=== PATIENT | female | born 1980 | race Hispanic/Latino ===

== ENCOUNTER 2017-09-08 09:27 | Emergency (ER) | payer SELFPAY ==
[~2017-09-08 09:27] MED LIST: Iopamidol 370 76% 125 ML VIAL FS ONE
[2017-09-08 09:57] LABS: #Basophils 0.1 thou/uL (0.0-0.2); #Eosinphils 0.1 thou/uL (0.0-0.7); #Lymphocytes 1.6 thou/uL (1.20-3.40); #Monocytes 0.5 thou/uL (0.11-0.59); #Neutrophils 2.6 thou/uL (1.40-6.50); %Basophils 1.1 % (0.0-1.0); %Eosinophils 2.6 % (0.0-10.0); %Lymphocytes 33.2 % (21.0-51.0); %Monocytes 9.2 % (0.0-10.0); Hemoglobin 13.8 g/dL (12.0-16.0); Mean Corpuscular HGB CONC 34.5 g/dL (32.0-36.0); Mean Corpuscular Hemoglobin 30.2 pg (27.0-31.0); Mean Corpuscular Volume 87.6 fl (81.0-99.0); Mean Platelet Volume 7.3 fL (7.4-10.4); Platelet Count 268 thou/uL (130-400); RBC Distribution Width 11.8 % (11.5-14.5); Red Blood Cell (RBC) Count 4.58 mill/uL (4.20-5.40); White Blood Cell (WBC) Count 4.8 thou/uL (4.8-10.8)
[2017-09-08 10:09] LABS: ALT (SGPT) 73 U/L (8-55); AST (SGOT) 35 U/L (5-34); Albumin 4.2 g/dL (3.5-5.0); Alkaline Phosphatase 61 U/L (40-150); Anion Gap 14 mmol/L (10-20); BUN (Urea Nitrogen) 7 mg/dL (7.0-18.7); Bilirubin, Total 0.3 mg/dL (0.2-1.2); Calc. Creatinine Clearance 0 mL/min (70-130); Calcium 9.4 mg/dL (7.8-10.44); Carbon Dioxide 23 mmol/L (22-29); Chloride 106 mmol/L (98-107); Estimated GFR-MDRD 83; Globulin 3.5 g/dL (2.4-3.5); Glucose 100 mg/dL (70-105); Potassium 4.1 mmol/L (3.5-5.1); Protein, Total 7.7 g/dL (6.0-8.3); Sodium 139 mmol/L (136-145)
[2017-09-08 10:18] LABS: BHCG - Serum Negative (NEGATIVE); Pregs Control Background? CLEAR/WHITE (CLR/WHITE); Pregs Control Bar Appear? YES (CONTROL BAR)
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
--- NOTE | 2017-09-08 10:38 | CT ---
CT OF CERVICAL SPINE PERFORMED WITHOUT CONTRAST ENHANCEMENT HISTORY: Neck pain status post fall. FINDINGS: The vertebral bodies are normal in height. There is some posterior osteophytic change at the C6-7 le chasidy. Some minimal offset of the facets, but there are no signs of ay perched facet at this level, pr obably on the basis of the arthritic change. There is no canal or foraminal stenosis and there is no CT evidence of a fracture. IMPRESSION: Arthritic changes of the C6-[address] evidence of fracture. POS: [facility]
[2017-09-08] MEDS ORDERED: Ketorolac Tromethamine 30 MG/ML VIAL ONE (10:46)
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
--- NOTE | 2017-09-08 11:54 | RAD ---
RIGHT KNEE 2 VIEWS: HISTORY: Knee injury. FINDINGS: There is a suggestion of some medial compartment narrowing. There are no signs of fracture, dislocat ion, or joint effusion. IMPRESSION: No evidence of fracture. POS: [facility]
== END 2017-09-08 11:50 | disposition home or self-care (01) ==
LOC: MADERS 09:27
DX: S86.811A Strain of other muscle(s) and tendon(s) at lower leg level, right leg, initial encounter (principal); V89.2XXA Person injured in unspecified motor-vehicle accident, traffic, initial encounter
CPT/HCPCS: 70450; 71260; 72125; 74177; 80053; 84703; 85025; 96374; J1885

== ENCOUNTER 2018-03-14 09:03 | Outpatient (CLI) | payer OTHER ==
--- NOTE | 2018-03-14 09:39 | RAD ---
CERVICAL SPINE 6 VIEWS: Date: 03/14/18 HISTORY: Neck pain. Arm weakness. FINDINGS: Vertebral body heights are maintained. There is gentle reversal of the normal lordotic curvature. No acute fracture, dislocation, or aggressive osseous erosions. No significant osseous encroachment of t he neural foramina on the oblique views. IMPRESSION: Normal radiographic appearance of the cervical spine. POS: [facility]
== END 2018-03-14 09:04 | disposition home or self-care (01) ==
LOC: MADRAD 09:03
PROVIDERS: ATTEND Family Medicine
DX: R29.898 Other symptoms and signs involving the musculoskeletal system (principal)
CPT/HCPCS: 72050

== ENCOUNTER 2019-04-16 08:55 | Outpatient (CLI) | payer OTHER ==
[2019-04-16 09:38] LABS: Cardiac Risk 3.6 (Less than 4.5)
[2019-04-16 17:25] LABS: Creatinine, Urine 209.08 mg/dL (47-110); Microalbumin Urine Less than 1.0 mg/dL (0.5-50.0)
[2019-04-16 17:57] LABS: Hemoglobin A1c 4.9 % (4.0-6.0)
== END 2019-04-16 08:56 | disposition home or self-care (01) ==
LOC: MADLAB 08:55
PROVIDERS: ATTEND Internal Medicine Endocrinology, Diabetes & Metabolism
DX: E11.65 Type 2 diabetes mellitus with hyperglycemia (principal)
CPT/HCPCS: 36415; 80061; 82043; 83036

== ENCOUNTER 2019-05-30 19:47 | Emergency (ER) | payer OTHER ==
[2019-05-30] MEDS ORDERED: Ketorolac Tromethamine 30 MG/ML VIAL ONE (20:47)
[2019-05-30] MEDS ORDERED: Ondansetron ODT 4 MG TAB ONE (20:47)
[2019-05-30] MEDS ORDERED: traMADol HCl 50 MG TAB ONE (20:47)
== END 2019-05-30 21:07 | disposition home or self-care (01) ==
LOC: MADERS 19:47
DX: K04.7 Periapical abscess without sinus (principal); I10 Essential (primary) hypertension; K02.9 Dental caries, unspecified; K03.81 Cracked tooth
CPT/HCPCS: 96372; 99283; J1885; Q0162

== ENCOUNTER 2019-09-18 12:29 | Outpatient (CLI) | payer OTHER ==
--- NOTE | 2019-09-18 13:34 | ULT ---
EXAM: Ultrasound of the right axilla DATE: 09/18/2019 INDICATION: Pain and palpable abnormality in the right axilla COMPARISON: None. FINDING: No suspicious sonographic abnormality is seen within the region of palpable interest of the right axilla. IMPRESSION:No suspicious sonographic abnormalities seen in the region of palpable interest of the rig ht axilla
== END 2019-09-18 12:30 | disposition home or self-care (01) ==
LOC: MADULT 12:29
PROVIDERS: ATTEND Family Medicine
DX: M79.621 Pain in right upper arm (principal)
CPT/HCPCS: 76999

== ENCOUNTER 2021-08-08 14:23 | Emergency (ER) | payer OTHER ==
[~2021-08-08 14:23] MED LIST changes: +Iopamidol 370 76% 100 ML VIAL ONE; -Iopamidol 370 76% 125 ML VIAL FS ONE
[2021-08-08 17:26] LABS: #Basophils 0.1 thou/uL (0.0-0.2); #Eosinphils 0.2 thou/uL (0.0-0.7); #Lymphocytes 2.1 thou/uL (1.20-3.40); #Monocytes 0.6 thou/uL (0.11-0.59); %Basophils 1.4 % (0.0-1.0); %Eosinophils 2.9 % (0.0-10.0); %Lymphocytes 29.8 % (21.0-51.0); %Neutrophils 57.9 % (42.0-75.0); Hemoglobin 14.4 g/dL (12.0-16.0); Mean Corpuscular HGB CONC 32.9 g/dL (32.0-36.0); Mean Corpuscular Hemoglobin 29.8 pg (27.0-31.0); Mean Corpuscular Volume 90.6 fL (78.0-98.0); Mean Platelet Volume 7.1 fL (7.4-10.4); Platelet Count 342 thou/uL (130-400); RBC Distribution Width 11.7 % (11.5-14.5); Red Blood Cell (RBC) Count 4.83 mill/uL (4.20-5.40); White Blood Cell (WBC) Count 6.9 thou/uL (4.8-10.8)
[2021-08-08 17:39] LABS: BHCG - Serum Negative (NEGATIVE); Pregs Control Background? CLEAR/WHITE (CLR/WHITE); Pregs Control Bar Appear? YES (CONTROL BAR)
[2021-08-08 17:43] LABS: ALT (SGPT) 37 U/L (8-55); AST (SGOT) 27 U/L (5-34); Albumin 4.7 g/dL (3.5-5.0); Alkaline Phosphatase 80 U/L (40-110); Anion Gap 13 mmol/L (10-20); BUN (Urea Nitrogen) 8 mg/dL (7.0-18.7); Bilirubin, Total 0.4 mg/dL (0.2-1.2); Calc. Creatinine Clearance 0 mL/min (70-130); Carbon Dioxide 23 mmol/L (22-29); Chloride 107 mmol/L (98-107); Globulin 3.7 g/dL (2.4-3.5); Glucose 84 mg/dL (70-105); Lipase 30 U/L (8-78); Magnesium 2.2 mg/dL (1.6-2.6); Potassium 3.8 mmol/L (3.5-5.1); Protein, Total 8.4 g/dL (6.0-8.3); Sodium 139 mmol/L (136-145)
[2021-08-08] MEDS ORDERED: Morphine 4 MG/ML VIAL ONE (19:06)
[2021-08-08] MEDS ORDERED: Ondansetron PF 4 MG/2 ML Vial ONE (19:06)
[2021-08-08 19:17] LABS: Bilirubin Negative (Negative); Blood, Urine Large (Negative); Glucose, Urine (Dipstick) Negative (Negative); Ketone, Urine Negative (Negative); Leukocyte Negative (Negative); Nitrite Negative (Negative); Protein, Urine (Dipstick) Negative (Neg-Trace); Urobilinogen 0.2 mg/dL (Less than 2)
[2021-08-08 19:19] LABS: Clarity Hazy (Clear)
[2021-08-08 19:23] LABS: Bacteria/HPF 1+ HPF (None Seen); Squamous Epithelial 0-3 HPF (0-3); WBC/HPF 0-3 HPF (0-3)
== END 2021-08-08 19:41 | disposition home or self-care (01) ==
LOC: MADERS 14:23
DX: R10.12 Left upper quadrant pain (principal); R31.9 Hematuria, unspecified; Z79.899 Other long term (current) drug therapy
CPT/HCPCS: 36415; 74177; 80053; 81003; 81015; 83690; 83735; 84703; 85025; 96374; 96375; J2270; J2405; Q9967

== ENCOUNTER 2021-11-08 15:43 | Outpatient (CLI) | payer OTHER | END 2021-11-08 15:44 | disposition home or self-care (01) | LOC: MADRAD 15:43 | PROVIDERS: ATTEND Family Medicine | DX: Z09 Encounter for follow-up examination after completed treatment for conditions other than malignant neoplasm (principal); Z86.16 Personal history of COVID-19 | CPT/HCPCS: 71046 ==

== ENCOUNTER 2021-12-05 10:57 | Outpatient (CLI) | payer OTHER ==
[2021-12-05 11:46] LABS: Bilirubin Negative (Negative); Blood, Urine Negative (Negative); Clarity Clear (Clear); Glucose, Urine (Dipstick) Negative (Negative); Ketone, Urine Negative (Negative); Leukocyte Negative (Negative); Nitrite Negative (Negative); Protein, Urine (Dipstick) Negative (Neg-Trace); Specific Gravity, Urine 1.025 (1.005-1.030); Urobilinogen 0.2 mg/dL (Less than 2)
[2021-12-05 11:56] LABS: Bacteria/HPF Rare-Few HPF (None Seen); RBC/HPF None Seen HPF (0-3); Squamous Epithelial 0-3 HPF (0-3); WBC/HPF None Seen HPF (0-3); Yeast-Budding Rare HPF (None Seen)
== END 2021-12-05 10:58 | disposition home or self-care (01) ==
LOC: MADLAB 10:57
PROVIDERS: ATTEND Family Medicine
DX: R31.29 Other microscopic hematuria (principal)
CPT/HCPCS: 81001; 87086

== ENCOUNTER 2022-03-14 19:30 | Emergency (ER) | payer OTHER ==
[~2022-03-14 19:30] MED LIST changes: +Sodium Chloride 0.9% 1,000 ML BAG ONE
[2022-03-14] MEDS ORDERED: Ketorolac Tromethamine 30 MG/ML VIAL ONE (20:09)
[2022-03-14 20:32] LABS: #Basophils 0.1 thou/uL (0.0-0.2); #Lymphocytes 0.9 thou/uL (1.20-3.40); #Monocytes 0.7 thou/uL (0.11-0.59); #Neutrophils 10.2 thou/uL (1.40-6.50); %Basophils 1.1 % (0.0-1.0); %Eosinophils 0.1 % (0.0-10.0); %Lymphocytes 7.8 % (21.0-51.0); %Monocytes 5.6 % (0.0-10.0); %Neutrophils 85.4 % (42.0-75.0); Hemoglobin 14.4 g/dL (12.0-16.0); Mean Corpuscular HGB CONC 33.6 g/dL (32.0-36.0); Mean Corpuscular Hemoglobin 27.3 pg (27.0-31.0); Mean Corpuscular Volume 81.1 fL (78.0-98.0); Mean Platelet Volume 7.9 fL (7.4-10.4); Platelet Count 264 thou/uL (130-400); RBC Distribution Width 11.5 % (11.5-14.5); White Blood Cell (WBC) Count 11.9 thou/uL (4.8-10.8)
[2022-03-14 20:47] LABS: ALT (SGPT) 43 U/L (8-55); AST (SGOT) 22 U/L (5-34); Albumin 4.5 g/dL (3.5-5.0); Alkaline Phosphatase 71 U/L (40-110); Anion Gap 12 mmol/L (10-20); BUN (Urea Nitrogen) 5 mg/dL (7.0-18.7); Bilirubin, Total 0.5 mg/dL (0.2-1.2); Calc. Creatinine Clearance 0 mL/min (70-130); Calcium 10.4 mg/dL (7.8-10.44); Carbon Dioxide 25 mmol/L (22-29); Chloride 106 mmol/L (98-107); Globulin 3.8 g/dL (2.4-3.5); Glucose 105 mg/dL (70-105); Potassium 3.6 mmol/L (3.5-5.1); Protein, Total 8.3 g/dL (6.0-8.3); Sodium 139 mmol/L (136-145)
[2022-03-14] MEDS ORDERED: Ampicillin/Sulbactam 3 GM VIAL ONE (21:42)
[2022-03-14] MEDS ORDERED: Sodium Chloride 0.9% 100 ML ONE (21:42)
[2022-03-14 21:47] LABS: BHCG - Serum Negative (NEGATIVE); Pregs Control Background? CLEAR/WHITE (CLR/WHITE); Pregs Control Bar Appear? YES (CONTROL BAR)
== END 2022-03-14 22:26 | disposition home or self-care (01) ==
LOC: MADERS 19:30
DX: J01.90 Acute sinusitis, unspecified (principal); J03.90 Acute tonsillitis, unspecified
CPT/HCPCS: 70491; 80053; 83605; 84703; 85025; 87040; 87081; 87430; 96365; 96372; J0295; J1885; J3490; J7050; Q9967

== ENCOUNTER 2022-06-20 11:08 | Outpatient (CLI) | payer OTHER ==
[2022-06-20 12:14] LABS: ALT (SGPT) 28 U/L (8-55); AST (SGOT) 18 U/L (5-34); Albumin 4.2 g/dL (3.5-5.0); Alkaline Phosphatase 91 U/L (40-110); Anion Gap 13 mmol/L (10-20); BUN (Urea Nitrogen) 8 mg/dL (7.0-18.7); Bilirubin, Total 0.3 mg/dL (0.2-1.2); Calc. Creatinine Clearance 0 mL/min (70-130); Calcium 10.1 mg/dL (7.8-10.44); Carbon Dioxide 24 mmol/L (22-29); Cardiac Risk 5.2 (Less than 4.5); Chloride 106 mmol/L (98-107); Cholesterol 162 mg/dl (< 200 Desired); Estimated GFR 112; Globulin 3.5 g/dL (2.4-3.5); Glucose 93 mg/dL (70-105); HDL Cholesterol 31 mg/dL (>60 Neg Risk); LDL Cholesterol, Calculated 91 mg/dL; Potassium 5.4 mmol/L (3.5-5.1); Protein, Total 7.7 g/dL (6.0-8.3); Sodium 138 mmol/L (136-145); Triglycerides 200 mg/dL (Less than 150)
[2022-06-20 12:19] LABS: Thyroid Stimulating Hormone 0.0026 uIU/mL (0.35-4.94)
[2022-06-20 16:21] LABS: Hemoglobin A1c 5.2 % (4.0-6.0)
[2022-06-21 02:43] LABS: HIV (1/2) Antibody/Antigen NonReactive (NonReactive); HIV 1/2 INDEX 0.14 S/CO (<1.00)
== END 2022-06-20 11:09 | disposition home or self-care (01) ==
LOC: MADLABBHPM 11:08 → MADLAB 11:09
PROVIDERS: ATTEND Family Medicine
DX: Z01.411 Encounter for gynecological examination (general) (routine) with abnormal findings (principal); Z11.4 Encounter for screening for human immunodeficiency virus [HIV]; Z83.3 Family history of diabetes mellitus; Z68.31 Body mass index [BMI] 31.0-31.9, adult
CPT/HCPCS: 80053; 80061; 83036; 84439; 84443; 84481; 87389; 87624; 88175

== ENCOUNTER 2023-01-24 08:05 | Emergency (ER) | payer OTHER ==
[2023-01-24] MEDS ORDERED: Ketorolac Tromethamine 30 MG/ML VIAL ONE (08:36)
[2023-01-24] MEDS ORDERED: Aspirin Chewable 81 MG TAB ONE (08:36)
[2023-01-24 08:39] LABS: #Basophils 0.1 thou/uL (0.0-0.2); #Eosinphils 0.2 thou/uL (0.0-0.7); #Monocytes 0.4 thou/uL (0.11-0.59); #Neutrophils 3.4 thou/uL (1.40-6.50); %Basophils 1.1 % (0.0-1.0); %Eosinophils 2.8 % (0.0-10.0); %Lymphocytes 33.4 % (21.0-51.0); %Neutrophils 56.6 % (42.0-75.0); Hemoglobin 13.9 g/dL (12.0-16.0); Mean Corpuscular HGB CONC 33.4 g/dL (32.0-36.0); Mean Corpuscular Hemoglobin 30.5 pg (27.0-31.0); Mean Corpuscular Volume 91.2 fl (78.0-98.0); Mean Platelet Volume 8.1 fL (7.4-10.4); Platelet Count 329 10x3/uL (130-400); RBC Distribution Width 11.7 % (11.5-14.5); Red Blood Cell (RBC) Count 4.54 mill/uL (4.20-5.40)
[2023-01-24 08:58] LABS: ALT (SGPT) 23 U/L (8-55); AST (SGOT) 18 U/L (5-34); Albumin 4.3 g/dL (3.5-5.0); Alkaline Phosphatase 76 U/L (40-110); Anion Gap 14 mmol/L (10-20); BUN (Urea Nitrogen) 9 mg/dL (7.0-18.7); Bilirubin, Total 0.2 mg/dL (0.2-1.2); Calc. Creatinine Clearance 0 mL/min (70-130); Calcium 9.3 mg/dL (7.8-10.44); Carbon Dioxide 18 mmol/L (22-29); Chloride 108 mmol/L (98-107); Estimated GFR 93; Globulin 3.8 g/dL (2.4-3.5); Glucose 101 mg/dL (70-105); Lipase 25 U/L (8-78); Potassium 4.1 mmol/L (3.5-5.1); Protein, Total 8.1 g/dL (6.0-8.3); Sodium 136 mmol/L (136-145)
[2023-01-24] MEDS ORDERED: Pantoprazole 40 MG VIAL ONE (09:53)
[2023-01-24] MEDS ORDERED: Mag-Al Plus 1200 MG/1200 MG/120 MG/30 ML UDCUP ONE (09:53)
== END 2023-01-24 12:52 | disposition home or self-care (01) ==
LOC: MADERS 08:05
DX: M94.0 Chondrocostal junction syndrome [Tietze] (principal); K29.70 Gastritis, unspecified, without bleeding; E11.9 Type 2 diabetes mellitus without complications; K21.9 Gastro-esophageal reflux disease without esophagitis; Z79.899 Other long term (current) drug therapy; Z79.84 Long term (current) use of oral hypoglycemic drugs
CPT/HCPCS: 36415; 71045; 80053; 83690; 84484; 85025; 93005; 96374; 96375; C9113; J1885

== ENCOUNTER 2024-02-26 12:51 | Emergency (ER) | payer OTHER | END 2024-02-26 14:07 | disposition home or self-care (01) | LOC: MADERS 12:51 | DX: S60.032A Contusion of left middle finger without damage to nail, initial encounter (principal); E11.9 Type 2 diabetes mellitus without complications; W23.1XXA Caught, crushed, jammed, or pinched between stationary objects, initial encounter ==

== ENCOUNTER 2024-05-09 12:01 | Emergency (ER) | payer OTHER ==
[~2024-05-09 12:01] MED LIST changes: -Sodium Chloride 0.9% 1,000 ML BAG ONE
[2024-05-09] MEDS ORDERED: Ondansetron PF 4 MG/2 ML Vial ONE (12:51)
[2024-05-09] MEDS ORDERED: Sodium Chloride 0.9% 1,000 ML ONE (12:51)
[2024-05-09] MEDS ORDERED: Ketorolac Tromethamine 30 MG (1 mL) VIAL ONE (12:51)
[2024-05-09 13:15] LABS: Pregnancy Test - Urine (BHCG) Negative (Negative); Pregu Control Background? CLEAR/WHITE (CLR/WHITE); Pregu Control Bar Appear? YES (CONTROL BAR)
[2024-05-09 13:20] LABS: Bilirubin Negative (Negative); Blood, Urine Trace (Negative); Glucose, Urine (Dipstick) Negative (Negative); Ketone, Urine 40 mg/dL (Negative); Leukocyte Negative (Negative); Nitrite Negative (Negative); Protein, Urine (Dipstick) Negative (Neg-Trace); Urobilinogen 0.2 mg/dL (Less than 2); pH, Urine 5.5 (5.0-9.0)
[2024-05-09 13:24] LABS: #Basophils 0.1 thou/uL (0.0-0.2); #Eosinphils 0.1 thou/uL (0.0-0.7); #Lymphocytes 1.8 thou/uL (1.20-3.40); #Monocytes 0.6 thou/uL (0.11-0.59); #Neutrophils 9.1 thou/uL (1.40-6.50); %Basophils 0.5 % (0.0-1.0); %Eosinophils 0.8 % (0.0-10.0); %Lymphocytes 15.1 % (21.0-51.0); %Monocytes 5.4 % (0.0-10.0); %Neutrophils 78.3 % (42.0-75.0); Hematocrit 44.2 % (36.0-47.0); Hemoglobin 13.9 g/dL (12.0-16.0); Mean Corpuscular HGB CONC 31.5 g/dL (32.0-36.0); Mean Corpuscular Hemoglobin 28.3 pg (27.0-31.0); Mean Corpuscular Volume 89.9 fl (78.0-98.0); Mean Platelet Volume 6.6 fL (7.4-10.4); Platelet Count 292 10x3/uL (130-400); RBC Distribution Width 11.7 % (11.5-14.5); Red Blood Cell (RBC) Count 4.91 mill/uL (4.20-5.40); White Blood Cell (WBC) Count 11.6 10x3/uL (4.8-10.8)
[2024-05-09 13:29] LABS: Bacteria/HPF 1+ HPF (None Seen); CAUTI Indications for Culture Pelvic or flank pain; Clarity Hazy (Clear); RBC/HPF 0-3 HPF (0-3); WBC/HPF 0-3 HPF (0-3); Yeast-Budding 1+ HPF (None Seen)
[2024-05-09 13:31] LABS: Urine Culture Reflex No No
[2024-05-09 13:39] LABS: ALT (SGPT) 22 U/L (8-55); AST (SGOT) 16 U/L (5-34); Albumin 4.2 g/dL (3.5-5.0); Alkaline Phosphatase 59 U/L (40-110); Anion Gap 15 mmol/L (10-20); BUN (Urea Nitrogen) 9 mg/dL (7.0-18.7); Bilirubin, Total 0.6 mg/dL (0.2-1.2); Calc. Creatinine Clearance 0 mL/min (70-130); Calcium 9.5 mg/dL (7.8-10.44); Carbon Dioxide 23 mmol/L (22-29); Chloride 103 mmol/L (98-107); Estimated GFR 93; Globulin 4.2 g/dL (2.4-3.5); Glucose 86 mg/dL (70-105); Lipase 16 U/L (8-78); Potassium 3.6 mmol/L (3.5-5.1); Protein, Total 8.4 g/dL (6.0-8.3); Sodium 137 mmol/L (136-145)
[2024-05-09] MEDS ORDERED: LevoFLOXacin D5W 500 mg (100 mL) BAG ONE (15:04)
== END 2024-05-09 17:44 | disposition home or self-care (01) ==
LOC: MADERS 12:01
DX: K57.92 Diverticulitis of intestine, part unspecified, without perforation or abscess without bleeding (principal)
CPT/HCPCS: 74177; 80053; 81001; 81025; 83690; 85025; 87086; 96361; 96365; 96367; 96375; J1885; J1956; J2405; J7030; Q9967

== ENCOUNTER 2025-07-31 08:08 | Outpatient (CLI) | payer OTHER | END 2025-07-31 08:09 | disposition home or self-care (01) | LOC: MADLAB 08:08 | PROVIDERS: ATTEND Internal Medicine Endocrinology, Diabetes & Metabolism | DX: E05.00 Thyrotoxicosis with diffuse goiter without thyrotoxic crisis or storm (principal) | CPT/HCPCS: 36415; 84439; 84443 ==

== ENCOUNTER 2025-09-16 16:22 | Outpatient (CLI) | payer OTHER | END 2025-09-16 16:23 | disposition home or self-care (01) | LOC: MADRAD 16:22 | PROVIDERS: ATTEND Internal Medicine Rheumatology | DX: M25.511 Pain in right shoulder (principal) ==